=== PATIENT | female | born 1950 | race Caucasian/White ===

== ENCOUNTER 2019-05-07 12:27 | Emergency (ER) | payer MEDICARE, OTHER ==
--- NOTE | 2019-05-07 12:52 | ER Document Report ---
ED Medical Screen (RME) - General Chief Complaint: Vomiting Stated Complaint: VOMITING,DIRRAHEA,ABDOMINAL PAIN Time Seen by Provider: 05/07/19 12:43 TRAVEL OUTSIDE OF THE [place] IN LAST 30 DAYS: No - HPI Notes: 05/07/19 12:50 Patient is a 69-year-old female with a history of A. fib (on Eliquis), hypertension, cholecystectomy, history ectomy, chronic nausea and vomiting for the last 9 years who presents complaining of increased nausea vomiting with mid abdominal pain over the past couple days. Patient also has watery diarrhea. Patient states that she has had multiple imaging studies performed as well as colonoscopies and endoscopies without any answers. She has seen Dr. Turner who is aware that she is here. She is scheduled to see him again on . Pt has also been having faster heart rate with occ chest pains and dyspnea. She mostly has the dyspnea during n/v episodes. I have treated and performed a rapid initial assessment of this patient. A comprehensive ED assessment and evaluation of the patient, analysis of test results and completion of medical decision making process will be conducted by additional ED providers. PHYSICAL EXAMINATION: GENERAL: Well-appearing, well-nourished and in no acute respiratory distress. A&Ox4. Answers questions appropriately. Abdomen: Limited exam in triage and in a wheelchair, but does have noted discomfort to the mid abdomen to palpation. - Related Data Allergies/Adverse Reactions: cephalexin [From Keflex] Allergy (Verified 05/07/19 12:44) Past Medical History - Social History Chew tobacco use (# tins/day): No Frequency of alcohol use: None Drug Abuse: None Physical Exam - Vital signs Vitals: Temp Pulse Resp BP Pulse Ox 97.6 F 162 H 16 121/86 H 91 L 05/07/19 12:41 05/07/19 12:41 05/07/19 12:41 05/07/19 12:41 05/07/19 12:41 Course - Vital Signs Vital signs: Temp Pulse Resp BP Pulse Ox 97.6 F 162 H 16 121/86 H 91 L 05/07/19 12:45 05/07/19 12:45 05/07/19 12:45 05/07/19 12:45 05/07/19 12:45
[2019-05-07] MEDS ORDERED: ONDANSETRON HCL INJ/PF 4 MG/2 ML SDV IV ONE (12:56)
[2019-05-07] MEDS ORDERED: PANTOPRAZOLE SODIUM 40 MG VIAL IV ONE (13:21)
--- NOTE | 2019-05-07 13:28 | ER Document Report ---
ED General - General Chief Complaint: Nausea/Vomiting/Diarrhea Stated Complaint: VOMITING,DIRRAHEA,ABDOMINAL PAIN Time Seen by Provider: 05/07/19 12:43 Primary Care Provider: GENARO GTZ NP [Primary Care Provider] - Follow up as needed TRAVEL OUTSIDE OF THE [place] IN LAST 30 DAYS: No - HPI Notes: 69-year-old female with a chief complaint of nausea vomiting diarrhea and g eneralized weakness of 3 days duration. Patient notes that she has had similar symptoms recurrently for "years" and that despite extensive testing no one has been able to pinpoint a cause of this. Associated epigastric burning. Denies vomiting blood or coffee-ground materials. Denies melena or hematochezia. She also indicates that she has had a history of paroxysmal atrial fibrillation. She has not been able to take her medications in the last 12 hours. She denies any chest pain, shortness of breath syncope or presyncope. - Related Data Allergies/Adverse Reactions: cephalexin [From Keflex] Allergy (Verified 05/07/19 12:44) Past Medical History - General Information source: Patient - Social History Smoking Status: Current Every Day Smoker Chew tobacco use (# tins/day): No Frequency of alcohol use: None Drug Abuse: None Family History: Reviewed & Not Pertinent Patient has suicidal ideation: No Patient has homicidal ideation: No - Past Medical History Cardiac Medical History: Reports: Hx Atrial Fibrillation, Hx Hypercholesterolemia, Hx Hypertension Endocrine Medical History: Reports: None Past Surgical History: Reports: Hx Cholecystectomy, Hx Hysterectomy, Hx Thyroid Surgery Review of Systems - Review of Systems Notes: Constitutional: Negative for fever. HENT: Negative for sore throat. Eyes: Negative for visual changes. Cardiovascular: Negative for chest pain. Respiratory: Negative for shortness of breath. Gastrointestinal: As per HPI. Genitourinary: Negative for dysuria. Musculoskeletal: Negative for back pain. Skin: Negative for rash. Neurological: Negative for headaches, focal weakness or numbness. 10 point ROS negative except as marked above and in HPI. Physical Exam - Vital signs Vitals: Temp Pulse Resp BP Pulse Ox 97.6 F 162 H 16 121/86 H 91 L 05/07/19 12:41 05/07/19 12:41 05/07/19 12:41 05/07/19 12:41 05/07/19 12:41 - Notes Notes: GENERAL: Female patient of approximately stated age appearing acutely ill and dehydrated. SKIN: Pale and cool. No rashes. HEAD: Normocephalic atraumatic. EYES: PERRLA. Conjunctivae and sclerae clear. EARS: CANALS AND TMS CLEAR. NOSE: CLEAR. MOUTH: Dry mucosa. Good dentition. No stridor or edema. No drooling. NECK: Supple. No masses or thyromegaly. No adenopathy. Carotids 2+ without bruits. No JVD. BACK: Symmetrical without tenderness. CHEST: Respirations unlabored. Breath sounds clear and symmetrical. HEART: Tachycardic regular rhythm. No murmur gallop or rub. ABDOMEN: Soft nontender without masses, organomegaly or rebound. Bowel sounds hyperactive. No bruits. GENITALIA: Deferred. EXTREMITIES: No edema. No calf tenderness. Cap refill less than 1.5 seconds. Dorsalis pedis and posterior tibial pulses 3+ and symmetrical. NEUROLOGICAL: GCS 15. Alert and oriented x3. Normal gait. Fluent speech. Cranial nerves II through XII intact. Sensorimotor and cerebellar normal. Normal tone. Course - Re-evaluation Re-evalutation: 05/07/19 15:56 I was finally able to get the to bring the medicine bottles for the chronic needs this lady is on. She takes Eliquis regularly and she is on beta- danis and metoprolol. So it looks like she has had history of chronic or paroxysmal atrial fibrillation. Her current rhythm now appears to be uncontrolled atrial fib. She still looks volume depleted. I will cautiously gi ve her some diltiazem IV and continued hydration with fluids. Her level of abdominal discomfort seems to be somewhat disproportionate physical findings. In this clinical setting this raises possibility of bowel ischemia. I have a lactate and venous blood gas pending. Her white count is mildly elevated. We requested a CT with contrast. We also note that she has a small bump on her troponin which is 0.4 at this time. She will undoubtedly require admission after we obtain some additional diagnostic studies. 05/07/19 20:45 telesales consultant subsequently saw the patient and felt there was a significant likelihood of bowel ischemia although the CTA of the abdomen pelvis did not show acute changes in this regard. She does appear to have a right lower lobe infiltrate not seen on the initial chest x-ray. Initial lactate was elevated at 2.6. A repeat after aggressive IV hydration was up to 3.2. Blood cultures were obtained. In view of the pneumonia the patient received IV antibiotics including aztreonam and azithromycin. Worsening hypoxemia noted. Clinically appeared to be deteriorating and was given a brief trial of BiPAP. Because of persistent high heart rate and overall instability the patient was intubated. telesales consultant Dr. Martins, felt the patient should be transferred to a tertiary care center because of ongoing concern for bowel ischemia despite negative findings on CT in view of her clinical presentation. He consulted with Dr. Je Sanchez with [facility] surgery who recommended that we try to transfer this lady to the medical intensive care unit at [facility]. Patient was subsequently accepted by Dr. Jean Baptiste for transfer to medical intensive care unit at [facility]. I spent an extended period of time speaking with the patient's family and they understand her critical status at this - Vital Signs Vital signs: Temp Pulse Resp BP Pulse Ox 97.6 F 162 H 26 H 135/89 H 96 05/07/19 12:45 05/07/19 12:45 05/07/19 20:36 05/07/19 20:36 05/07/19 20:36 - Laboratory Result Diagrams: 05/07/19 14:30 05/07/19 14:30 Laboratory results interpreted by me: 05/07/19 05/07/19 05/07/19 14:30 14:30 14:30 WBC 12.0 H RBC 5.41 H Hgb 17.0 H Hct 50.2 H RDW 14.5 H Lymph % (Auto) 12.8 L Absolute Neuts (auto) 9.8 H Seg Neutrophils % 81.9 H PT 15.7 H ABG pH ABG pO2 ABG HCO3 ABG Total CO2 ABG O2 Saturation BUN 33 H Creatinine 1.35 H Est GFR ( Amer) 47 L Est GFR (MDRD) Non-Af 39 L Lactic Acid Lactic Acid (Sepsis) AST 55 H Urine Protein Urine Glucose (UA) Urine Ketones 05/07/19 05/07/19 05/07/19 14:55 15:50 17:38 WBC RBC Hgb Hct RDW Lymph % (Auto) Absolute Neuts (auto) Seg Neutrophils % PT ABG pH 7.21 L ABG pO2 76.1 L ABG HCO3 16.7 L ABG Total CO2 18.0 L ABG O2 Saturation 92.4 L BUN Creatinine Est GFR ( Amer) Est GFR (MDRD) Non-Af Lactic Acid Lactic Acid (Sepsis) 2.6 H AST Urine Protein 100 H Urine Glucose (UA) 50 H Urine Ketones TRACE H 05/07/19 18:45 WBC RBC Hgb Hct RDW Lymph % (Auto) Absolute Neuts (auto) Seg Neutrophils % PT ABG pH ABG pO2 ABG HCO3 ABG Total CO2 ABG O2 Saturation BUN Creatinine Est GFR ( Amer) Est GFR (MDRD) Non-Af Lactic Acid 3.1 H Lactic Acid (Sepsis) AST Urine Protein Urine Glucose (UA) Urine Ketones - Diagnostic Test Radiology reviewed: Reports reviewed Critical Care Note - Critical Care Note Total time excluding time spent on procedures (mins): 108 Comments: Sepsis work-up. IV antibiotics. Surgical consultation. Multiple doses of IV medicines for ventricular rate control. Intubation. Mechanical ventilation. Discharge - Discharge Clinical Impression: Atrial fibrillation with rapid ventricular response, Dehydration, Non-ST eleva jessica myocardial infarction (non-STEMI) Sepsis Qualifiers: Sepsis type: sepsis due to unspecified organism Sepsis acute organ dysfunction status: with acute organ dysfunction Severe sepsis acute organ dysfunction type: acute respiratory failure Acute respiratory failure type: with hypoxia Severe sepsis shock status: without septic shock Qualified Code(s): A41.9 - Sepsis, unspecified organism Pneumonia Qualifiers: Pneumonia type: due to unspecified organism Laterality: right Lung location: unspecified part of lung Qualified Code(s): J18.9 - Pneumonia, unspecified organism Abdominal pain Qualifiers: Abdominal location: generalized Qualified Code(s): R10.84 - Generalized abdominal pain Condition: Critical Disposition: [facility] Referrals: GENARO GTZ, DIVISION ORDER TECHNICIAN [Primary Care Provider] - Follow up as needed
--- NOTE | 2019-05-07 14:10 | RADIOLOGY REPORT (SQ) ---
EXAM DESCRIPTION: CHEST SINGLE VIEW COMPLETED DATE/TIME: 05/07/2019 2:00 pm REASON FOR STUDY: CP COMPARISON: None. EXAM PARAMETERS: NUMBER OF VIEWS: One view. TECHNIQUE: Single frontal radiographic view of the chest acquired. RADIATION DOSE: NA LIMITATIONS: None. FINDINGS: LUNGS AND PLEURA: Small effusions. Bilateral interstitial airspace disease. MEDIASTINUM AND HILAR STRUCTURES: No masses. Contour normal. HEART AND VASCULAR STRUCTURES: Heart is enlarged with central vascular congestion. BONES: No acute findings. HARDWARE: None in the chest. OTHER: No other significant finding. IMPRESSION: Cardiomegaly. Findings are most consistent with mild vascular congestion. Clinical cor relation is needed. TECHNICAL DOCUMENTATION: JOB ID: [id number] [employer]- All Rights Reserved Reading location - IP/workstation name: [email or web address]
[2019-05-07] MEDS: NORMAL SALINE 1000 ML 1,000 ML IV PRN ×2 (14:24→14:28)
--- NOTE | 2019-05-07 14:31 | EKG REPORT ---
SEVERITY:- ABNORMAL ECG - SUPRAVENTRICULAR TACHYCARDIA LEFT ANTERIOR FASCICULAR BLOCK CONSIDER ANTERIOR INFARCT NONSPECIFIC T ABNORMALITIES, DIFFUSE LEADS : Confirmed by: Radha Hernandez MD 07-May-2019 14:30:51
[2019-05-07 14:53] LABS: ABSOLUTE LYMPHOCYTES (AUTO) 1.5 10^3/uL (0.5-4.7); ABSOLUTE MONOCYTES (AUTO) 0.6 10^3/uL (0.1-1.4); ABSOLUTE NEUT (AUTO) 9.8 10^3/uL (1.7-8.2); BASOPHILS % (AUTO) 0.2 % (0-2); HEMATOCRIT 50.2 % (36.0-47.0); LYMPHOCYTES % (AUTO) 12.8 % (13-45); MEAN CORPUSCULAR HEMOGLOBIN 31.5 pg (27.0-33.4); MEAN CORPUSCULAR HGB CONC 33.9 g/dL (32.0-36.0); MEAN CORPUSCULAR VOLUME 93 fl (80-97); MONOCYTES % (AUTO) 5.1 % (3-13); PLATELET COUNT 286 10^3/uL (150-450); RED BLOOD COUNT 5.41 10^6/uL (3.72-5.28); RED CELL DISTRIBUTION WIDTH 14.5 % (11.5-14.0); SEGMENTED NEUTROPHILS % (AUTO) 81.9 % (42-78); TOTAL CELLS COUNTED % (AUTO) 100 %
[2019-05-07 15:05] LABS: INTERNATIONAL RATION (INR) 1.24; PROTHROMBIN TIME 15.7 SEC (11.4-15.4)
[2019-05-07 15:06] LABS: PARTIAL THROMBOPLASTIN TIME 26.6 SEC (23.5-35.8)
[2019-05-07 15:14] LABS: ALBUMIN 4.3 g/dL (3.5-5.0); ALKALINE PHOSPHATASE 121 U/L (38-126); ANION GAP 12 (5-19); ASPARTATE AMINO TRANSFERASE 55 U/L (14-36); BILIRUBIN,DIRECT 0.1 mg/dL (0.0-0.4); BILIRUBIN,TOTAL 0.9 mg/dL (0.2-1.3); BLOOD UREA NITROGEN 33 mg/dL (7-20); CALCIUM 9.8 mg/dL (8.4-10.2); CARBON DIOXIDE 25 mmol/L (22-30); CHLORIDE 107 mmol/L (98-107); GLUCOSE 107 mg/dL (75-110); TOTAL PROTEIN 7.1 g/dL (6.3-8.2)
[2019-05-07 15:16] LABS: APPEARANCE,URINE CLOUDY; BILIRUBIN,URINE NEGATIVE (NEGATIVE); COLOR,URINE AMBER; GLUCOSE, URINE 50 mg/dL (NEGATIVE); KETONES,URINE TRACE mg/dL (NEGATIVE); PROTEIN,URINE 100 mg/dL (NEGATIVE); UROBILINOGEN,URINE NEGATIVE mg/dL (<2.0)
[2019-05-07] MEDS: FENTANYL CITRATE INJ/PF 100 MCG/2 ML AMPUL IV PRN ×3 (15:17→21:00)
[2019-05-07] MEDS ORDERED: DILTIAZEM HCL INJ 25 MG/5 ML VIAL IV ONE ×2 (15:53→16:47)
[2019-05-07] MEDS ORDERED: DILTIAZEM HCL/D5W 125 MG/125 ML RTUINJ IV PRN (15:54)
[2019-05-07] MEDS ORDERED: NORMAL SALINE 1000 ML 1,000 ML IV ONE (15:55)
[2019-05-07 16:20] LABS: VENOUS BLOOD BASE EXCESS -5.5 mmol/L; VENOUS BLOOD HCO3 20.4 mmol/L (20-32); VENOUS BLOOD PCO2 41.3 mmHg (35-63); VENOUS BLOOD PH 7.31 (7.30-7.42)
[2019-05-07] MEDS ORDERED: LORAZEPAM INJ 2 MG/1 ML VIAL IV ONE (16:45)
[2019-05-07 18:03] LABS: ARTERIAL BLOOD BASE EXCESS -10.7 mmol/L; ARTERIAL BLOOD H2CO3 1.28 mmol/L (1.05-1.35); ARTERIAL BLOOD HCO3 16.7 mmol/L (20-24); ARTERIAL BLOOD O2 SATURATION 92.4 % (94-98); ARTERIAL BLOOD PCO2 42.6 mmHg (35-45); ARTERIAL BLOOD PH 7.21 (7.35-7.45); ARTERIAL BLOOD PO2 76.1 mmHg (80-100)
[2019-05-07 18:17] LABS: ARTERIAL BLOOD FIO2 100%
--- NOTE | 2019-05-07 18:32 | RADIOLOGY REPORT (SQ) ---
EXAM DESCRIPTION: CT ABD/PELVIS WITH IV ONLY COMPLETED DATE/TIME: 05/07/2019 6:07 pm REASON FOR STUDY: Abdominal pain COMPARISON: None. TECHNIQUE: CT scan of the abdomen and pelvis performed using helical scanning technique with dynamic intravenous contrast injection. No oral contrast. Images reviewed with lung, soft tissue, and bone windows. Reconstructed coronal and sagittal MPR images reviewed. Delayed images for evaluation of the urinary system also acquired. All images stored on PACS. All CT scanners at this facility use dose modulation, iterative reconstruction, and/or weight based d osing when appropriate to reduce radiation dose to as low as reasonably achievable (ALARA). [facility]: Dose Right [facility]: CareDose [facility]: Dose Right [facility]: Teradose 4D [facility]: Biogenic Reagents CONTRAST TYPE AND DOSE: contrast/concentration: Isovue 350.00 mg/ml; Total Contrast Delivered: 95.0 ml; Total Saline Delivered: 56.1 ml RENAL FUNCTION: BUN 33 creatinine 1.35 RADIATION DOSE: CT Rad equipment meets quality standard of care and radiation dose reduction techniq ues were employed. CTDIvol: 15.3 - 19.1 mGy. DLP: 1747 mGy-cm.. LIMITATIONS: None. FINDINGS: LOWER CHEST: There is considerable opacification in the right lower lobe with some air bro nchograms. LIVER: Normal size. No masses. No dilated ducts. SPLEEN: Normal size. No focal lesions. PANCREAS: No masses. No significant calcifications. No adjacent inflammation or peripancreatic fluid collections. Pancreatic duct not dilated. GALLBLADDER: Surgically absent. ADRENAL GLANDS: No significant masses or asymmetry. RIGHT KIDNEY AND URETER: No solid masses. No significant calcifications. No hydronephrosis or hyd roureter. LEFT KIDNEY AND URETER: No solid masses. No significant calcifications. No hydronephrosis or hydr oureter. AORTA AND VESSELS: No aneurysm. No dissection. Renal arteries, SMA, celiac without stenosis. RETROPERITONEUM: No retroperitoneal adenopathy, hemorrhage or masses. BOWEL AND PERITONEAL CAVITY: The cecum extends low into the pelvis. There is considerable stool in t he cecum. APPENDIX: Not identified. PELVIS: No mass. No free fluid. Normal bladder. ABDOMINAL WALL: No masses. No hernias. BONES: Anterolisthesis of L5 on S1. OTHER: No other significant finding. IMPRESSION: 1. Right lower lobe pneumonia. 2. The celiac and SMA are patent. The renal arteries are patent. There is no evidence of mesenteri c ischemia. Follow-up as clinically indicated. 3. Anterolisthesis of L5 on S1. TECHNICAL DOCUMENTATION: JOB ID: [id number] Quality ID # [id number]: Final reports with documentation of one or more dose reduction techniques (e.g., Au tomated exposure control, adjustment of the mA and/or kV according to patient size, use of iterative reconstruction technique) 2010 [employer]- All Rights Reserved Reading location - IP/workstation name: [email or web address]
[2019-05-07] MEDS ORDERED: AZTREONAM INJ 1 GM VIAL IV ONE (19:16)
[2019-05-07] MEDS ORDERED: AZITHROMYCIN 250 MG TABLET PO ONE (19:17)
--- NOTE | 2019-05-07 19:26 | PDOC CONSULTATION ---
Consultation Consult Date: 05/07/19 Provider Consulted: KARL ABRAHAM Consult reason:: Abdominal pain History of Present Illness Admission Date/PCP: GENARO GTZ NP Patient complains of: Severe abdominal pain History of Present Illness: REYNALDO CAMPBELL is a 69 year old female With several year history of abdominal pain nausea vomiting and loose bowel movements status post extensive gastroenterology work-up in the past without a distinct diagnosis. Patient now presents with several day history of nausea and vomiting abdominal pain and diarrhea alternating with normal bowel movements. Patient came in today because she has been experiencing severe abdominal pain in the last 24 hours. Patient notes that her previous symptoms are chronic in nature however the present severe abdominal pain is completely new. She denies any fever. She has been short of breath. Patient does have a history of hypertension, hypercholesterolemia, and cigarette smoking abuse. She also has atrial fib. In the ER she has received nearly 3 L of IV fluids and has been placed on a Cardizem drip with her initial tachycardia of 160 decreasing to a rate of 120s. She continues to have abdominal pain and shortness of breath but denies chest pain. Past Medical History Cardiac Medical History: Reports: Atrial Fibrillation, Hyperlipidema, Hypertension Endocrine Medical History: Reports: None Past Surgical History Past Surgical History: Reports: Cholecystectomy, Hysterectomy Social History Smoking Status: Current Every Day Smoker Electronic Cigarette use?: No Frequency of Alcohol Use: None Hx Recreational Drug Use: No Hx Prescription Drug Abuse: No Family History Parental Family History Reviewed: No Children Family History Reviewed: No Sibling(s) Family History Reviewed.: No Medication/Allergy Allergies/Adverse Reactions: cephalexin [From Keflex] Allergy (Verified 05/07/19 12:44) Physical Exam Vital Signs: Temp Pulse Resp BP Pulse Ox 97.6 F 162 H 38 H 137/104 H 94 05/07/19 12:45 05/07/19 12:45 05/07/19 18:05 05/07/19 18:05 05/07/19 18:05 Intake & Output 05/06/19 05/07/19 05/08/19 06:59 06:59 06:59 Intake Total 2071 Balance 2071 Weight 82.6 kg General appearance: PRESENT: cooperative, other - Short of breath and complaining of abdominal pain. Eye exam: PRESENT: conjunctiva pink Respiratory exam: PRESENT: clear to auscultation tierra Cardiovascular exam: PRESENT: tachycardia GI/Abdominal exam: PRESENT: other - Soft, obese, very mild diffuse abdominal tenderness with no peritoneal signs. Diminished bowel sounds. Skin exam: PRESENT: warm - Warm Results Laboratory Results: 05/07/19 14:30 05/07/19 14:30 05/07/19 05/07/19 05/07/19 14:30 14:30 14:55 WBC 12.0 H RBC 5.41 H Hgb 17.0 H Hct 50.2 H MCV 93 MCH 31.5 MCHC 33.9 RDW 14.5 H Plt Count 286 Seg Neutrophils % 81.9 H Carbonic Acid HCO3/H2CO3 Ratio ABG pH ABG pCO2 ABG pO2 ABG HCO3 ABG O2 Saturation ABG Base Excess VBG pH VBG pCO2 VBG HCO3 VBG Base Excess FiO2 Sodium 144.2 Potassium 4.0 Chloride 107 Carbon Dioxide 25 Anion Gap 12 BUN 33 H Creatinine 1.35 H Est GFR ( Amer) 47 L Glucose 107 Calcium 9.8 Total Bilirubin 0.9 AST 55 H Alkaline Phosphatase 121 Total Protein 7.1 Albumin 4.3 Lipase 93.5 Urine Color RONDA Urine Appearance CLOUDY Urine pH 5.0 Ur Specific [place] 1.030 Urine Protein 100 H Urine Glucose (UA) 50 H Urine Ketones TRACE H Urine Blood NEGATIVE Urine RBC (Auto) 1 05/07/19 05/07/19 15:50 17:38 WBC RBC Hgb Hct MCV MCH MCHC RDW Plt Count Seg Neutrophils % Carbonic Acid 1.28 HCO3/H2CO3 Ratio 13:1 ABG pH 7.21 L ABG pCO2 42.6 ABG pO2 76.1 L ABG HCO3 16.7 L ABG O2 Saturation 92.4 L ABG Base Excess -10.7 VBG pH 7.31 VBG pCO2 41.3 VBG HCO3 20.4 VBG Base Excess -5.5 FiO2 100% Sodium Potassium Chloride Carbon Dioxide Anion Gap BUN Creatinine Est GFR ( Amer) Glucose Calcium Total Bilirubin AST Alkaline Phosphatase Total Protein Albumin Lipase Urine Color Urine Appearance Urine pH Ur Specific [place] Urine Protein Urine Glucose (UA) Urine Ketones Urine Blood Urine RBC (Auto) 05/07/19 14:30 Troponin I 0.403 Impressions: Abdomen/Pelvis CT 05/07/19 00:00 IMPRESSION: 1. Right lower lobe pneumonia. 2. The celiac and SMA are patent. The renal arteries are patent. There is no evidence of mesenteric ischemia. Follow-up as clinically indicated. 3. Anterolisthesis of L5 on S1. Chest X-Ray 05/07/19 12:53 IMPRESSION: Cardiomegaly. Findings are most consistent with mild vascular congestion. Clinical correlation is needed. Assessment & Plan - Diagnosis (1) Abdominal pain Qualifiers: Abdominal location: generalized Qualified Code(s): R10.84 - Generalized abdominal pain Is this a current diagnosis for this admission?: Yes Plan: 69-year-old patient with hypertension hypercholesterolemia and cigarette smoking abuse and atrial fib presenting with pain out of proportion with exam with tachycardia and lactic acidosis. She has received IV fluids and has been start ed on Cardizem with decrease of her heart rate but still tachycardic at 120. [address] scan with IV contrast is read as negative, her presenting symptoms and signs are suspicious for mesenteric ischemia. I feel strongly that she would be better care for at a tertiary care center with vascular surgery back-up. I have discussed this case with Dr. Sanchez at [facility] who agreed that she would be better served at a tertiary care center and recommended transfer to the medical service there.
[2019-05-07] MEDS ORDERED: AZITHROMYCIN INJ 500 MG VIAL IV ONE (19:34)
[2019-05-07] MEDS ORDERED: PROPOFOL 1,000 MG/100 ML INFUS..BTL IV ONE (19:53)
[2019-05-07] MEDS ORDERED: ETOMIDATE INJ/PF 20 MG/10 ML SDV IV ONE (19:54)
[2019-05-07] MEDS ORDERED: SUCCINYLCHOLINE CHLORIDE INJ 200 MG/10 ML VIAL IV ONE (19:54)
--- NOTE | 2019-05-07 21:02 | RADIOLOGY REPORT (SQ) ---
EXAM DESCRIPTION: Portable chest x-ray. 8:24 PM CLINICAL HISTORY: 69 years Female, ETT/NG PLACEMENT COMPARISON: Chest x-ray today at 1:51 PM FINDINGS: Cardiomegaly. No obvious suspicious mediastinal widening. Underlying hyperinflation/COPD/emphysema. Since several hours ago, increased right lower lobe infiltrate. Increased interstitial markings bilaterally greater on the right. Endotracheal tube well above the anabell. Enteric tube in the abdomen. No obvious pneumothorax. IMPRESSION: Cardiomegaly. COPD. Increase in infiltrates since several hours ago possibly edema. Cannot exclude underlying pneumonia. Good position of endotracheal tube and nasogastric tube.
[2019-05-07 22:11] VITALS: BP 117/68
--- NOTE | 2019-05-08 00:35 | EKG REPORT ---
SEVERITY:- ABNORMAL ECG - ECTOPIC ATRIAL TACHYCARDIA VENTRICULAR PREMATURE COMPLEX LEFT ANTERIOR FASCICULAR BLOCK ST DEPRESSION, CONSIDER ISCHEMIA, INF LEADS : Confirmed by: Radha Hernandez MD 08-May-2019 00:34:50
--- NOTE | 2019-05-08 00:36 | EKG REPORT ---
SEVERITY:- ABNORMAL ECG - ATRIAL FIBRILLATION WITH RAPID V-RATE LEFT ANTERIOR FASCICULAR BLOCK CONSIDER ANTERIOR INFARCT NONSPECIFIC T ABNORMALITIES, ANT-LAT LEADS : Confirmed by: Radha Hernandez MD 08-May-2019 00:34:55
== END 2019-05-07 22:10 | disposition short-term general hospital (02) ==
LOC: ER 12:27
DX: I21.4 Non-ST elevation (NSTEMI) myocardial infarction (principal); J18.9 Pneumonia, unspecified organism; A41.9 Sepsis, unspecified organism; I48.20 Chronic atrial fibrillation, unspecified; R10.84 Generalized abdominal pain; R11.2 Nausea with vomiting, unspecified; R19.7 Diarrhea, unspecified; R53.1 Weakness; I48.91 Unspecified atrial fibrillation; E78.00 Pure hypercholesterolemia, unspecified; I10 Essential (primary) hypertension; Z88.3 Allergy status to other anti-infective agents; Z90.49 Acquired absence of other specified parts of digestive tract; Z90.710 Acquired absence of both cervix and uterus; Z79.02 Long term (current) use of antithrombotics/antiplatelets
CPT/HCPCS: 93005; 96376; 99291; 99292; 96361; 96375; 96365; 96366; 96368; 36415; 87040; 82803 ×2; 83605 ×2; 83690; 85025; 85610; 85730; 80053; 81001; 84484; 71045; 74177; 94660 ×2; 93010; 36600; J3010; J2704; J3490 ×4; J2060; C9113; J0330; J2405; J7030; J0456